=== PATIENT | male | born 1935 | race Two or more races ===

== ENCOUNTER 2022-10-30 16:56 | Emergency (ER) | payer OTHER ==
[~2022-10-30] VITALS: Ht 152.4 cm; Wt 61.2 kg
[2022-10-30] MEDS ORDERED: ECOTRIN81 MG PO (17:34)
[2022-10-30] MEDS ORDERED: PLAVIX75 MG PO (17:35)
[2022-10-30] MEDS ORDERED: GLUMETZA1000 MG PO (17:35)
[2022-10-30] MEDS ORDERED: TAMS0.4C PO (17:35)
[2022-10-30] MEDS ORDERED: TOPROL XL25 M1 PO (17:36)
[2022-10-30] MEDS ORDERED: ATORVASTATIN CA40 MG PO (17:36)
[2022-10-30] MEDS ORDERED: LEVOFLOXACIN500 MG PO (21:44)
[2022-10-30] MEDS ORDERED: PEPCID AC20 MG PO (21:44)
== END 2022-10-30 21:52 | disposition home or self-care (01) ==
LOC: ER 16:56
DX: N39.0 Urinary tract infection, site not specified (principal); R10.9 Unspecified abdominal pain; I10 Essential (primary) hypertension; E11.9 Type 2 diabetes mellitus without complications; Z79.84 Long term (current) use of oral hypoglycemic drugs